=== PATIENT | male | born 1950 | race Caucasian/White ===

== ENCOUNTER 2021-10-25 08:22 | Day surgery (SDC) | payer MEDICARE, OTHER ==
[~2021-10-25 08:22] MED LIST: Propofol 200 MG/20 ML SDV ONE; fentaNYL 100 MCG/2 ML SDV ONE
[2021-10-25] MEDS: Dextrose 5%-Lactated Ringers 1,000 ML IV SCH (09:05)
== END 2021-10-25 11:14 | disposition home or self-care (01) ==
LOC: JP.SDS 08:22
PROVIDERS: ATTEND Family Medicine
DX: Z12.11 Encounter for screening for malignant neoplasm of colon (principal); K62.1 Rectal polyp; I10 Essential (primary) hypertension; E11.9 Type 2 diabetes mellitus without complications
CPT/HCPCS: 45380; 88305; J2704; J3010; J7121